=== PATIENT | female | born 1970 | race Two or more races ===

== ENCOUNTER → 2024-04-25 11:21 | Outpatient (REF) | payer OTHER, SELFPAY | LOC: HWRAD 11:21 | PROVIDERS: ATTENDING PHYSICIAN Orthopaedic Surgery; FAMILY PHYSICIAN Internal Medicine | DX: M54.50 Low back pain, unspecified (principal); M54.9 Dorsalgia, unspecified | CPT/HCPCS: 72070; 72100 ==

== ENCOUNTER → 2024-05-05 14:00 | Outpatient (REF) | payer OTHER, SELFPAY | LOC: PAVMRI 14:00 | PROVIDERS: ATTENDING PHYSICIAN Orthopaedic Surgery; FAMILY PHYSICIAN Internal Medicine | DX: S83.282A Other tear of lateral meniscus, current injury, left knee, initial encounter (principal) | CPT/HCPCS: 73721 ==

== ENCOUNTER → 2024-11-21 09:17 | Outpatient (REF) | payer OTHER, SELFPAY | LOC: PAVMRI 09:17 | PROVIDERS: ATTENDING PHYSICIAN Anesthesiology; FAMILY PHYSICIAN Internal Medicine | DX: M54.14 Radiculopathy, thoracic region (principal) | CPT/HCPCS: 72146 ==